=== PATIENT | female | born 1985 | race Caucasian/White ===

== ENCOUNTER 2016-09-03 03:18 | Emergency (ER) | payer MEDICAID ==
[~2016-09-03] VITALS: Ht 167.6 cm; Wt 87.4 kg
[~2016-09-03 03:18] MED LIST: ALPR-475 PO; DOCU-30 PO; IBUP800T PO; LORA-446 PO; MULT-672 PO; No meds per pt.; OXYC-302 PO; OXYC10TA6 PO
[2016-09-03] MEDS ORDERED: ONDANSETRON 2MG/ML, 2ML ONE (03:47)
[2016-09-03] MEDS ORDERED: MAALOX/HYOSCYAMINE/LIDOCAINE 45 ML BOTTLE ONE (03:47)
[2016-09-03] MEDS ORDERED: FAMOTIDINE 20 MG/2 ML ONE (03:48)
[2016-09-03] MEDS ORDERED: SODIUM CHLORIDE 0.9% 1,000ML IVBOLUS ONE (04:00)
[2016-09-03] MEDS ORDERED: ONDANSETRON 2MG/ML, 2ML IVPush ONE (04:00)
[2016-09-03] MEDS ORDERED: FAMOTIDINE 20 MG/2 ML IVP ONE (04:00)
[2016-09-03] MEDS ORDERED: MAALOX/HYOSCYAMINE/LIDOCAINE 45 ML BOTTLE PO ONE (04:00)
[2016-09-03 04:28] LABS: ASPARTATE AMINO TRANSFERASE 17 U/L (15-37); BLOOD UREA NITROGEN 15 mg/dL (7-18)
[2016-09-03 04:34] LABS: IS PT STATUS REG ER OR PRE ER? YES
[2016-09-03] MEDS ORDERED: DIAZEPAM 5 MG TABLET ONE (04:38)
[2016-09-03] MEDS ORDERED: DIAZEPAM 5 MG TABLET PO ONE (05:00)
[2016-09-03 05:09] LABS: PATH.CAST-FLAG NOT PRESENT; SPERM-FLAG NOT PRESENT; SRC-FLAG NOT PRESENT; XTAL-FLAG NOT PRESENT; YLC-FLAG NOT PRESENT
[2016-09-03 06:08] LABS: HCG UR OBC PASS
[2016-09-03 06:24] VITALS: BP 108/81
== END 2016-09-03 06:28 | disposition home or self-care (01) ==
LOC: ED 06:22
DX: K29.00 Acute gastritis without bleeding (principal); K21.9 Gastro-esophageal reflux disease without esophagitis; Z87.440 Personal history of urinary (tract) infections; Z90.710 Acquired absence of both cervix and uterus
CPT/HCPCS: 36415; 71010; 76700; 80053; 81001; 81025; 83690; 84484; 85025; 87086; 93005; 96361; 96374; 96375; 99285; J2405; J7030; S0028

== ENCOUNTER 2016-09-07 19:34 | Emergency (ER) | payer MEDICAID ==
[~2016-09-07] VITALS: Ht 170.2 cm; Wt 88.5 kg
[2016-09-07 20:50] LABS: ASPARTATE AMINO TRANSFERASE 13 U/L (15-37); BLOOD UREA NITROGEN 12 mg/dL (7-18)
[2016-09-07] MEDS ORDERED: HYDROmorphone 1 MG/ML, 1ML IM ONE (21:00)
[2016-09-07] MEDS ORDERED: ONDANSETRON ODT 4 MG PO ONE (21:00)
[2016-09-07] MEDS ORDERED: ONDANSETRON ODT 4 MG ONE (21:23)
[2016-09-07] MEDS ORDERED: HYDROmorphone 1 MG/ML, 1ML ONE (21:23)
[2016-09-07] MEDS ORDERED: DIPHENHYDRAMINE 50 MG/ML, 1ML IVPush ONE (22:00)
[2016-09-07] MEDS ORDERED: OXYcodone/APAP 7.5/325MG TABLET ONE (22:51)
[2016-09-07 22:56] VITALS: BP 96/51
[2016-09-07] MEDS ORDERED: OXYcodone/APAP 7.5/325MG TABLET PO ONE (23:00)
== END 2016-09-07 23:07 | disposition home or self-care (01) ==
LOC: ED 23:01
DX: S09.90XA Unspecified injury of head, initial encounter (principal); S16.1XXA Strain of muscle, fascia and tendon at neck level, initial encounter; N83.201 Unspecified ovarian cyst, right side; W10.9XXA Fall (on) (from) unspecified stairs and steps, initial encounter; Y93.89 Activity, other specified; Y99.8 Other external cause status; Y92.009 Unspecified place in unspecified non-institutional (private) residence as the place of occurrence of the external cause; Z90.710 Acquired absence of both cervix and uterus
CPT/HCPCS: 36415; 70450; 72125; 76830; 80053; 84703; 85025; 96372; 99285; J1170; Q0162

== ENCOUNTER 2017-02-06 10:06 | Observation (INO) | payer MEDICAID ==
[~2017-02-06] VITALS: Ht 167.6 cm; Wt 78.0 kg
[~2017-02-06 10:06] MED LIST changes: +DOCU-131 PO; -DOCU-30 PO; +IBUP-1223 PO; -IBUP800T PO
[2017-02-06] MEDS ORDERED: HYDROmorphone 1 MG/ML, 1ML ONE ×5 (10:22→18:29)
[2017-02-06] MEDS ORDERED: ONDANSETRON 2MG/ML, 2ML ONE ×2 (10:22→17:17)
[2017-02-06] MEDS: HYDROmorphone 1 MG/ML, 1ML IVPush PRN ×2 (10:30→10:55)
[2017-02-06] MEDS ORDERED: SODIUM CHLORIDE FLUSH 10ML SYR IVF ONE (10:30)
[2017-02-06] MEDS ORDERED: KETOROLAC 30 MG/1 ML IVPush ONE (10:30)
[2017-02-06] MEDS ORDERED: PLEASE ENTER HEIGHT AND WEIGHT MC SCH (10:30)
[2017-02-06] MEDS ORDERED: ONDANSETRON 2MG/ML, 2ML IVPush ONE (10:30)
[2017-02-06 10:41] LABS: HEMATOCRIT 40.3 % (34.6-47.8); HEMOGLOBIN 13.7 g/dL (11.7-16.4)
[2017-02-06 10:45] LABS: BLOOD UREA NITROGEN 17 mg/dL (7-18)
[2017-02-06] MEDS ORDERED: HYDROmorphone 1 MG/ML, 1ML IV ONE (12:30)
[2017-02-06] MEDS ORDERED: LORazepam 2 MG/ML, 1ML IVPush ONE (13:00)
[2017-02-06] MEDS ORDERED: TAMSULOSIN 0.4 MG CAP.ER.24H ONE (13:12)
[2017-02-06] MEDS ORDERED: LORazepam 2 MG/ML, 1ML ONE (13:13)
[2017-02-06] MEDS ORDERED: SODIUM CHLORIDE 0.9% 1,000ML IV ONE (13:30)
[2017-02-06] MEDS ORDERED: TAMSULOSIN 0.4 MG CAP.ER.24H PO ONE (13:30)
[2017-02-06 15:08] LABS: DAU SCREEN DISCLAIMER
[2017-02-06] MEDS ORDERED: NEOSTIGMINE 1 MG/ML, 10ML ONE (17:17)
[2017-02-06] MEDS ORDERED: ROCURONIUM 10MG/ML,5ML ONE (17:17)
[2017-02-06] MEDS ORDERED: METOCLOPRAMIDE 5 MG/ML, 2ML ONE (17:17)
[2017-02-06] MEDS ORDERED: LIDOCAINE-MPF 2% ,5ML ONE (17:17)
[2017-02-06] MEDS ORDERED: GLYCOPYRROLATE 0.4 MG/2 ML, 2ML ONE (17:17)
[2017-02-06] MEDS ORDERED: PROPOFOL 10 MG/ML, 20ML ONE (17:17)
[2017-02-06] MEDS ORDERED: SUCCINYLCHOLINE 20 MG/ML, 10ML ONE (17:17)
[2017-02-06] MEDS ORDERED: CEFAZOLIN 1,000 MG ONE (17:17)
[2017-02-06] MEDS ORDERED: DEXAMETHASONE 4 MG/ML, 1ML ONE (17:17)
[2017-02-06] MEDS ORDERED: PROMETHAZINE 25 MG/ML, 1ML IV PRN (17:30)
[2017-02-06] MEDS ORDERED: OXYcodone 5 MG/5 ML ORAL.SOL UDC PO PRN (17:30)
[2017-02-06] MEDS ORDERED: ACETAMINOPHEN 325 MG TABLET PO PRN (17:30)
[2017-02-06] MEDS ORDERED: MIDAZOLAM 1 MG/ML, 2ML IV PRN (17:30)
[2017-02-06] MEDS ORDERED: hydrALAzine 20 MG/ML, 1ML IV PRN (17:30)
[2017-02-06] MEDS ORDERED: LABETALOL 5MG/ML, 20ML IV PRN (17:30)
[2017-02-06] MEDS ORDERED: ONDANSETRON 2MG/ML, 2ML IVPush PRN (17:30)
[2017-02-06] MEDS ORDERED: FENTANYL PF 100 MCG/2ML ONE (18:29)
[2017-02-06] MEDS ORDERED: OXYBUTYNIN CHLORIDE 5 MG TABLET PO ONE (18:30)
[2017-02-06] MEDS ORDERED: OXYcodone 5 MG/5 ML ORAL.SOL UDC ONE (18:30)
[2017-02-06] MEDS: HYDROmorphone 1 MG/ML, 1ML IV PRN ×2 (18:32→18:54)
[2017-02-06] MEDS: FENTANYL PF 100 MCG/2ML IV PRN ×2 (18:38→19:03)
[2017-02-06 19:45] VITALS: BP 120/81
[2017-02-06] MEDS ORDERED: OXYB10TA6 PO (20:04)
[2017-02-06] MEDS ORDERED: OXYC-302 PO (20:04)
[2017-02-06] MEDS ORDERED: PHEN-418 PO (20:05)
[2017-02-06] MEDS ORDERED: DOCU-131 PO (20:06)
== END 2017-02-06 20:45 | disposition home or self-care (01) ==
LOC: ED 10:27 → EDIP 15:17 → 4NOR 16:20
PROVIDERS: ADMIT Hospitalist; ATTEND Hospitalist
DX: N13.2 Hydronephrosis with renal and ureteral calculous obstruction (principal); F19.10 Other psychoactive substance abuse, uncomplicated
CPT/HCPCS: 36415; 52356; 74176; 74420; 80048; 80307; 81001; 82040; 82360; 85025; 88300; 96374; 96375; 96376; 99285; C1758; C1769; C2617; G0378; J0330; J0690; J1100; J1170; J2060; J2405; J2704; J2710; J2765; J3010; J3490; J7030; G0479

== ENCOUNTER 2017-02-08 14:45 | Emergency (ER) | payer MEDICAID ==
[~2017-02-08] VITALS: Ht 167.6 cm; Wt 82.2 kg
[~2017-02-08 14:45] MED LIST changes: +OXYB10TA6 PO; +PHEN-418 PO
[2017-02-08 15:21] LABS: HEMATOCRIT 40.1 % (34.6-47.8); HEMOGLOBIN 13.4 g/dL (11.7-16.4); WHITE BLOOD COUNT 8.8 x10^3/uL (3.4-10)
[2017-02-08] MEDS ORDERED: ONDANSETRON 2MG/ML, 2ML ONE (15:28)
[2017-02-08] MEDS ORDERED: HYDROmorphone 1 MG/ML, 1ML ONE ×2 (15:28→16:16)
[2017-02-08] MEDS ORDERED: ONDANSETRON 2MG/ML, 2ML IVPush ONE (15:30)
[2017-02-08 15:32] LABS: ASPARTATE AMINO TRANSFERASE 14 U/L (15-37); BLOOD UREA NITROGEN 15 mg/dL (7-18)
[2017-02-08] MEDS: HYDROmorphone 1 MG/ML, 1ML IVPush PRN ×2 (15:38→16:18)
[2017-02-08 16:29] VITALS: BP 134/81
[2017-02-08] MEDS ORDERED: SODIUM CHLORIDE 0.9% 1,000ML IVBOLUS ONE (16:30)
[2017-02-08] MEDS ORDERED: DIPHENHYDRAMINE 50 MG/ML, 1ML ONE (16:34)
[2017-02-08] MEDS ORDERED: DIPHENHYDRAMINE 50 MG/ML, 1ML IVPush ONE (17:00)
== END 2017-02-08 17:40 | disposition home or self-care (01) ==
LOC: ED 16:19
DX: R10.33 Periumbilical pain (principal); F17.210 Nicotine dependence, cigarettes, uncomplicated; K21.9 Gastro-esophageal reflux disease without esophagitis; K29.70 Gastritis, unspecified, without bleeding; Z90.710 Acquired absence of both cervix and uterus; Z98.890 Other specified postprocedural states
CPT/HCPCS: 36415; 74176; 80053; 81001; 85025; 87086; 87106; 96361; 96374; 96375; 96376; 99285; J1170; J1200; J2405; J7030

== ENCOUNTER 2017-04-12 06:07 | Emergency (ER) | payer MEDICAID ==
[~2017-04-12] VITALS: Ht 172.7 cm; Wt 75.0 kg
[2017-04-12] MEDS ORDERED: SODIUM CHLORIDE 0.9% 1,000 ML IV ONE (06:15)
[2017-04-12] MEDS ORDERED: SODIUM CHLORIDE 0.9% 1,000ML IVBOLUS ONE (06:30)
[2017-04-12] MEDS ORDERED: ONDANSETRON 2MG/ML, 2ML IVPush ONE (06:30)
[2017-04-12] MEDS ORDERED: HYDROmorphone 1 MG/ML, 1ML IVPush PRN (06:30)
[2017-04-12] MEDS ORDERED: SODIUM CHLORIDE FLUSH 10ML SYR IVF ONE (06:30)
[2017-04-12] MEDS ORDERED: DIAZ10TA4 PO (06:35)
[2017-04-12] MEDS ORDERED: HYDROmorphone 2 MG/ML, 1ML ONE (06:38)
[2017-04-12] MEDS ORDERED: ONDANSETRON 2MG/ML, 2ML ONE (06:39)
[2017-04-12 06:43] LABS: ALANINE AMINOTRANSFERASE 27 U/L (12-78); ALBUMIN 3.8 g/dL (3.4-5.0); ANION GAP 7 mmol/L (5-15); CALCIUM 9.6 mg/dL (8.5-10.1); CHLORIDE 107 mmol/L (98-107); CREATININE 0.79 mg/dL (0.55-1.02)
[2017-04-12 06:48] LABS: BASOPHILS # (AUTO) 0.02 x10^3/uL (0-0.1); BASOPHILS % (AUTO) 0 % (0-1); EOSINOPHILS # (AUTO) 0.09 x10^3/uL (0-0.4); EOSINOPHILS % (AUTO) 1 % (1-7); LYMPHOCYTES # (AUTO) 3.49 x10^3/uL (1-3.4); LYMPHOCYTES % (AUTO) 54 % (22-44); MD NO; MEAN CORPUSCULAR HEMOGLOBIN 30.1 pg (27.0-34.8); MEAN CORPUSCULAR HGB CONC 33.5 g/dL (32.4-35.8); MEAN CORPUSCULAR VOLUME 89.7 fL (80-100); MEAN PLATELET VOLUME 8.6 fL (7.4-10.4); MONOCYTES # (AUTO) 0.36 x10^3/uL (0.2-0.8); MONOCYTES % (AUTO) 6 % (2-9); NEUTROPHILS # (AUTO) 2.53 x10^3/uL (1.8-6.8); NEUTROPHILS % (AUTO) 39 % (42-75); PLATELET COUNT 208 x10^3/uL (130-400); RED BLOOD COUNT 4.88 x10^6/uL (3.82-5.3); RED CELL DISTRIBUTION WIDTH 13.1 % (9.6-15.2)
[2017-04-12 07:04] LABS: ALKALINE PHOSPHATASE 96 U/L (45-117); BILIRUBIN,TOTAL 0.7 mg/dL (0.2-1.0); TOTAL PROTEIN 7.9 g/dL (6.4-8.2)
[2017-04-12 07:34] LABS: MICROSCOPIC NOT IND
[2017-04-12 07:36] LABS: CULTURE INDICATED? NO
[2017-04-12 09:02] VITALS: BP 104/54
== END 2017-04-12 09:07 | disposition home or self-care (01) ==
LOC: ED 08:45
DX: R10.13 Epigastric pain (principal); R10.32 Left lower quadrant pain; R10.31 Right lower quadrant pain; R10.30 Lower abdominal pain, unspecified; K21.9 Gastro-esophageal reflux disease without esophagitis; Z90.710 Acquired absence of both cervix and uterus; Z87.442 Personal history of urinary calculi
CPT/HCPCS: 36415; 80053; 81003; 83690; 85025; 96361; 96374; 96375; 99285; J1170; J2405; J7030